=== PATIENT | male | born 1990 | race Caucasian/White ===

== ENCOUNTER 2025-06-29 11:44 | Outpatient (CLI) | payer OTHER, SELFPAY ==
[2025-06-29 12:51] LABS: Alanine Aminotransferase 41 U/L (6-50); Albumin Level 4.8 g/dL (3.5-5.1); Alkaline Phosphatase 71 U/L (38-126); Anion Gap 6 mmol/L (4-12); Aspartate Amino Transferase 34 U/L (17-59); Bilirubin,Total 0.6 mg/dL (0.2-1.3); Blood Urea Nitrogen 11 mg/dL (9-20); Calcium 9.4 mg/dL (8.4-10.2); Carbon Dioxide 31 mmol/L (22-30); Chloride 101 mmol/L (98-107); Cholesterol 252 mg/dL (0-200); Estimated Glomerular Filt Rate > 60; Glucose 88 mg/dL (65-110); HDL Direct 59 mg/dL; Potassium 3.9 mmol/L (3.4-5.0); Sodium 138 mmol/L (137-145); Total Protein 8.0 g/dL (6.3-8.2); Triglycerides 69 mg/dL (<150)
[2025-06-29 13:20] LABS: Syphilis IgG/IgM Antibody Non-Reactive (Nonreactive)
[2025-06-29 13:23] LABS: Hepatitis B Surface Antigen Negative (Negative)
[2025-06-29 13:36] LABS: Trichomonas Vag PCR NOT DETECTED (NOT DETECTE)
[2025-06-29 13:47] LABS: Hepatitis B Surface Anti Res Positive
[2025-06-29 14:48] LABS: HIV 1/2 Ab P24 Ag Result Reactive (Negative)
[2025-06-30 05:08] LABS: Hep A Ab, Total Negative (Negative)
[2025-06-30 07:09] LABS: TSH 2.190 uIU/mL (0.450-4.500)
== END 2025-06-29 11:45 | disposition home or self-care (01) ==
DX: Z13.29 Encounter for screening for other suspected endocrine disorder (principal); Z11.3 Encounter for screening for infections with a predominantly sexual mode of transmission; Z13.220 Encounter for screening for lipoid disorders; Z13.228 Encounter for screening for other metabolic disorders; Z13.6 Encounter for screening for cardiovascular disorders
CPT/HCPCS: 36415; 80053; 80061; 83695; 84439; 84443; 84481; 86376; 86593; 86703; 86706; 86708; 86803; 87340; 87389; 87491; 87591; 87661; G0432